=== PATIENT | female | born 1950 | race Caucasian/White ===

== ENCOUNTER 2018-10-24 01:16 | Outpatient (RCR) | payer MEDICARE, BC, SELFPAY | END 2018-11-16 23:59 | disposition home or self-care (01) | LOC: INF 01:16 | PROVIDERS: Visit Provider Internal Medicine | DX: E83.19 Other disorders of iron metabolism (principal) | CPT/HCPCS: 99195 ==

== ENCOUNTER 2018-10-24 09:08 | Outpatient (CLI) | payer MEDICARE, BC, SELFPAY ==
[2018-10-24 09:37] LABS: Absolute Eosinophil Count 0.11 k/cumm (0.0-0.7); Absolute Lymphocyte Count 1.42 k/cumm (1.2-3.4); Absolute Monocyte Count 0.57 k/cumm (0.11-0.7); Absolute Neutrophil Count 3.41 k/cumm (1.2-6.7); HCT 38.8 % (36.0-46.0); HGB 13.4 g/dL (12.0-15.5); Lymphocytes % 25.8; Mean Corp. HGB Concentration 34.5 g/dL (32.0-36.0); Mean Corpuscular Hemoglobin 31.4 pg (27.0-33.0); Mean Corpuscular Volume 90.9 fL (80-95); Mean Platelet Volume 10.7 fL (8.0-11.0); Monocytes % 10.3; Neutrophils % 61.9; Platelet Count 237 x1000/uL (130-400); RBC 4.27 m/cumm (4.00-5.20); RBC Distribution Width 12.7 % (11.7-14.6); White Blood Cell Count 5.51 k/cumm (4.4-10.8)
[2018-10-24 10:05] LABS: Ferritin 461 ng/mL (8-388)
== END 2018-10-24 09:28 ==
PROVIDERS: PCP Nurse Practitioner Family; Visit Provider Internal Medicine Hematology
DX: E83.19 Other disorders of iron metabolism (principal)
CPT/HCPCS: 36415; 99195; 82728; 85025

== ENCOUNTER 2018-11-21 01:13 | Outpatient (RCR) | payer MEDICARE, BC, SELFPAY | END 2018-12-16 23:59 | disposition home or self-care (01) | LOC: INF 01:13 | PROVIDERS: PCP Nurse Practitioner Family; Visit Provider Internal Medicine | DX: E83.19 Other disorders of iron metabolism (principal) | CPT/HCPCS: 99195 ==

== ENCOUNTER 2018-11-21 09:07 | Outpatient (CLI) | payer MEDICARE, BC, SELFPAY ==
[2018-11-21 09:29] LABS: Abs Immature Grans 0.01 k/cumm (0.0-0.09); Absolute Basophil Count 0.01 k/cumm (0.0-0.2); Absolute Eosinophil Count 0.09 k/cumm (0.0-0.7); Absolute Monocyte Count 0.33 k/cumm (0.11-0.7); Absolute Neutrophil Count 2.67 k/cumm (1.2-6.7); Basophils % 0.2; HCT 36.4 % (36.0-46.0); HGB 12.4 g/dL (12.0-15.5); Immature Grans % 0.2; Mean Corp. HGB Concentration 34.1 g/dL (32.0-36.0); Mean Corpuscular Hemoglobin 31.8 pg (27.0-33.0); Mean Corpuscular Volume 93.3 fL (80-95); Mean Platelet Volume 10.5 fL (8.0-11.0); Monocytes % 7.3; Neutrophils % 59.3; Platelet Count 240 x1000/uL (130-400); RBC Distribution Width 13.2 % (11.7-14.6); White Blood Cell Count 4.51 k/cumm (4.4-10.8)
[2018-11-21 09:56] LABS: Ferritin 400 ng/mL (8-388)
== END 2018-11-21 09:27 ==
PROVIDERS: PCP Nurse Practitioner Family; Visit Provider Internal Medicine Hematology
DX: E83.19 Other disorders of iron metabolism (principal)
CPT/HCPCS: 36415; 99195; 82728; 85025

== ENCOUNTER 2018-12-19 01:13 | Outpatient (CLI) | payer MEDICARE, BC, SELFPAY ==
[2018-12-19 08:25] LABS: Abs Immature Grans 0.01 k/cumm (0.0-0.09); Absolute Basophil Count 0.01 k/cumm (0.0-0.2); Absolute Lymphocyte Count 1.42 k/cumm (1.2-3.4); Absolute Monocyte Count 0.43 k/cumm (0.11-0.7); Absolute Neutrophil Count 2.98 k/cumm (1.2-6.7); Basophils % 0.2; HCT 35.6 % (36.0-46.0); HGB 12.1 g/dL (12.0-15.5); Immature Grans % 0.2; Lymphocytes % 28.7; Mean Corpuscular Hemoglobin 31.7 pg (27.0-33.0); Mean Corpuscular Volume 93.2 fL (80-95); Mean Platelet Volume 10.4 fL (8.0-11.0); Monocytes % 8.7; Neutrophils % 60.2; Platelet Count 227 x1000/uL (130-400); RBC 3.82 m/cumm (4.00-5.20); RBC Distribution Width 12.7 % (11.7-14.6); White Blood Cell Count 4.95 k/cumm (4.4-10.8)
[2018-12-19 08:49] LABS: Ferritin 305 ng/mL (8-388)
== END 2018-12-19 01:33 ==
PROVIDERS: PCP Nurse Practitioner Family; Visit Provider Internal Medicine Hematology
DX: E83.19 Other disorders of iron metabolism (principal)
CPT/HCPCS: 36415; 99195; 82728; 85025

== ENCOUNTER 2019-01-16 01:44 | Outpatient (RCR) | payer MEDICARE, BC, SELFPAY | END 2019-01-16 23:59 | disposition home or self-care (01) | LOC: INF 01:44 | PROVIDERS: PCP Nurse Practitioner Family; Visit Provider Internal Medicine | DX: E83.19 Other disorders of iron metabolism (principal) | CPT/HCPCS: 99195 ==

== ENCOUNTER 2019-01-28 10:01 | Outpatient (CLI) | payer MEDICARE, BC, SELFPAY ==
[2019-01-28 10:40] LABS: Abs Immature Grans 0.01 k/cumm (0.0-0.09); Absolute Basophil Count 0.01 k/cumm (0.0-0.2); Absolute Eosinophil Count 0.06 k/cumm (0.0-0.7); Absolute Lymphocyte Count 1.46 k/cumm (1.2-3.4); Absolute Monocyte Count 0.41 k/cumm (0.11-0.7); Basophils % 0.2; Eosinophils % 1.4; HCT 36.6 % (36.0-46.0); HGB 12.5 g/dL (12.0-15.5); Immature Grans % 0.2; Lymphocytes % 33.6; Mean Corp. HGB Concentration 34.2 g/dL (32.0-36.0); Mean Corpuscular Hemoglobin 31.5 pg (27.0-33.0); Mean Corpuscular Volume 92.2 fL (80-95); Mean Platelet Volume 10.7 fL (8.0-11.0); Monocytes % 9.4; Neutrophils % 55.2; Platelet Count 237 x1000/uL (130-400); RBC 3.97 m/cumm (4.00-5.20); RBC Distribution Width 12.6 % (11.7-14.6); White Blood Cell Count 4.34 k/cumm (4.4-10.8)
[2019-01-28 11:50] LABS: Ferritin 266 ng/mL (8-388)
== END 2019-01-28 10:21 ==
PROVIDERS: PCP Nurse Practitioner Family; Visit Provider Internal Medicine Hematology
DX: E83.19 Other disorders of iron metabolism (principal)
CPT/HCPCS: 36415; 82728; 85025

== ENCOUNTER 2019-03-21 04:24 | Outpatient (RCR) | payer MEDICARE, BC, SELFPAY | END 2019-04-18 23:59 | disposition home or self-care (01) | LOC: INF 04:24 | PROVIDERS: PCP Nurse Practitioner Family; Visit Provider Internal Medicine | DX: E83.19 Other disorders of iron metabolism (principal) | CPT/HCPCS: 99195 ==

== ENCOUNTER 2019-05-13 03:02 | Outpatient (RCR) | payer MEDICARE, BC, SELFPAY ==
[2019-05-13 10:04] LABS: Absolute Eosinophil Count 0.09 k/cumm (0.0-0.7); Absolute Lymphocyte Count 1.33 k/cumm (1.2-3.4); Absolute Monocyte Count 0.39 k/cumm (0.11-0.7); Absolute Neutrophil Count 2.34 k/cumm (1.2-6.7); Eosinophils % 2.2; HCT 35.9 % (36.0-46.0); HGB 12.4 g/dL (12.0-15.5); Mean Corp. HGB Concentration 34.5 g/dL (32.0-36.0); Mean Corpuscular Hemoglobin 31.2 pg (27.0-33.0); Mean Corpuscular Volume 90.4 fL (80-95); Mean Platelet Volume 10.7 fL (8.0-11.0); Monocytes % 9.4; Neutrophils % 56.4; Platelet Count 253 x1000/uL (130-400); RBC 3.97 m/cumm (4.00-5.20); RBC Distribution Width 12.9 % (11.7-14.6); White Blood Cell Count 4.15 k/cumm (4.4-10.8)
[2019-05-13 10:29] LABS: Ferritin 235 ng/mL (8-252)
== END 2019-05-18 23:59 | disposition home or self-care (01) ==
LOC: INF 03:02
PROVIDERS: PCP Nurse Practitioner Family; Visit Provider Internal Medicine Hematology
DX: E83.19 Other disorders of iron metabolism (principal)
CPT/HCPCS: 36415; 99195; 82728; 85025

== ENCOUNTER 2019-06-24 11:08 | Outpatient (CLI) | payer MEDICARE, BC, SELFPAY ==
[2019-06-24 12:05] LABS: Absolute Eosinophil Count 0.11 k/cumm (0.0-0.7); Absolute Lymphocyte Count 1.39 k/cumm (1.2-3.4); Absolute Monocyte Count 0.46 k/cumm (0.11-0.7); Absolute Neutrophil Count 2.93 k/cumm (1.2-6.7); Eosinophils % 2.2; HCT 36.3 % (36.0-46.0); HGB 12.3 g/dL (12.0-15.5); Lymphocytes % 28.4; Mean Corp. HGB Concentration 33.9 g/dL (32.0-36.0); Mean Corpuscular Volume 91.4 fL (80-95); Mean Platelet Volume 10.6 fL (8.0-11.0); Monocytes % 9.4; Platelet Count 270 x1000/uL (130-400); RBC 3.97 m/cumm (4.00-5.20); RBC Distribution Width 12.7 % (11.7-14.6); White Blood Cell Count 4.89 k/cumm (4.4-10.8)
[2019-06-24 12:42] LABS: Ferritin 174 ng/mL (8-252)
== END 2019-06-24 11:28 ==
PROVIDERS: PCP Nurse Practitioner Family; Visit Provider Internal Medicine Hematology
DX: E83.19 Other disorders of iron metabolism (principal)
CPT/HCPCS: 36415; 82728; 85025

== ENCOUNTER 2019-10-29 12:56 | Outpatient (CLI) | payer MEDICARE, BC, SELFPAY ==
--- NOTE | 2019-10-29 10:13 | DI.RAD_ITS ---
EXAM: XR FOOT LT COMPLETE CLINICAL HISTORY: pain TECHNIQUE: COMPARISON: No exams were available for comparison FINDINGS: Three views were obtained. No bony or soft tissue abnormality seen apart from minimal degenerative m arginal osteophyte formation at the joints of the ankle and midfoot. IMPRESSION:
== END 2019-10-29 13:16 ==
PROVIDERS: PCP Nurse Practitioner Family; Referring Provider Nurse Practitioner Family; Visit Provider Orthopaedic Surgery
DX: M79.672 Pain in left foot (principal); M25.772 Osteophyte, left ankle; M25.775 Osteophyte, left foot; M76.822 Posterior tibial tendinitis, left leg
CPT/HCPCS: 99214; 73630; L1902

== ENCOUNTER 2019-11-15 10:03 | Outpatient (CLI) | payer MEDICARE, BC, SELFPAY ==
[2019-11-15 14:00] LABS: Abs Immature Grans 0.01 k/cumm (0.0-0.09); Absolute Basophil Count 0.01 k/cumm (0.0-0.2); Absolute Eosinophil Count 0.04 k/cumm (0.0-0.7); Absolute Lymphocyte Count 1.12 k/cumm (1.2-3.4); Absolute Monocyte Count 0.39 k/cumm (0.11-0.7); Absolute Neutrophil Count 5.35 k/cumm (1.2-6.7); Basophils % 0.1; Eosinophils % 0.6; HCT 37.3 % (36.0-46.0); HGB 12.8 g/dL (12.0-15.5); Immature Grans % 0.1 %; Lymphocytes % 16.2; Mean Corp. HGB Concentration 34.3 g/dL (32.0-36.0); Mean Corpuscular Volume 90.3 fL (80-95); Mean Platelet Volume 10.4 fL (8.0-11.0); Monocytes % 5.6; Neutrophils % 77.4; Platelet Count 257 x1000/uL (130-400); RBC 4.13 m/cumm (4.00-5.20); RBC Distribution Width 13.4 % (11.7-14.6); White Blood Cell Count 6.92 k/cumm (4.4-10.8)
[2019-11-15 15:15] LABS: Ferritin 206 ng/mL (8-252)
== END 2019-11-15 10:23 ==
PROVIDERS: PCP Nurse Practitioner Family; Visit Provider Internal Medicine Hematology
DX: E83.19 Other disorders of iron metabolism (principal)
CPT/HCPCS: 36415; 82728; 85025

== ENCOUNTER → 2019-11-26 09:34 | Outpatient (BNVA) | payer MEDICARE, BC, SELFPAY | PROVIDERS: PCP Nurse Practitioner Family; Referring Provider Nurse Practitioner Family; Visit Provider Orthopaedic Surgery | DX: M76.822 Posterior tibial tendinitis, left leg | CPT/HCPCS: 99213 ==